=== PATIENT | female | born 1975 | race Caucasian/White ===

== ENCOUNTER → 2017-08-16 | Outpatient (CLI) | payer BC, OTHER ==
--- NOTE | 2017-08-16 15:47 | PCVCIMAG ---
APPROVED REPORT Study performed: 08/16/2017 14:42:18 EXAM: Comprehensive 2D, Doppler, and color-flow Echocardiogram Patient Location: Echo lab Status: routine BSA: 1.87 HR: 64 bpmBP: 120/62 mmHg Rhythm: NSR Other Information Study Quality: Adequate Indications Palpitations PSVT 2D Dimensions LVEF(%): 54.62 (>50%) IVSd: 10.64 (7-11mm) LVDd: 46.93 mm PWd: 10.26 (7-11mm) LVDs: 33.66 (25-40mm) Left Atrium: 39.87 (27-40mm) Aortic Root: 28.30 mm LV Single Plane 4CH: 58.07 % LV Single Plane 2CH: 60.90 %Jiménez's LVEF: 59.49 % Biplane EF: 59.6 % Volumes Left Atrial Volume (Systole) Single Plane 4CH: 46.26 mLSingle Plane 2CH: 55.36 mL LA ESV Index: 29.00 mL/m2 Aortic Valve AoV Peak Chuckie.: 1.43 m/s AO Peak Gr.: 8.24 mmHgLVOT Max P.68 mmHg LVOT Max V: 1.08 m/s Mitral Valve E/A Ratio: 1.5 MV Decel. Time: 228.73 ms MV E Max Chuckie.: 0.77 m/s MV A Chuckie.: 0.51 m/s MV PHT: 66.33 ms IVRT: 103.81 ms Pulmonary Valve PV Peak Chuckie.: 0.86 m/sPV Peak Gr.: 2.96 mmHg Pulmonary Vein P Vein S: 0.47 m/sP Vein A: 0.28 m/s P Vein D: 0.50 m/sP Vein A Dur.: 134.9 msec P Vein S/D Ratio: 0.94 Tricuspid Valve TR Peak Chuckie.: 2.12 m/s TR Peak Gr.: 18.00 mmHg Left Ventricle The left ventricle is normal size. There is normal LV segmental wall motion. There is normal left ventricular wall thickness. Left ventricular systolic function is normal. The left ventricular ejection fraction is within the normal range. LVEF is 55-60%. Grade I - abnormal relaxation pattern. Right Ventricle The right ventricle is normal size. The right ventricular systolic function is normal. Atria The left atrium size is normal. The right atrium size is normal. Aortic Valve The aortic valve is normal in structure. No aortic regurgitation is present. There is no aortic valvular stenosis. Mitral Valve The mitral valve is normal in structure. There is no mitral valve regurgitation noted. No evidence of mitral valve stenosis. Tricuspid Valve The tricuspid valve is normal in structure. Trace tricuspid regurgitation with PAP of 25 mmHg. Pulmonic Valve The pulmonary valve is normal in structure. There is trivial pulmonic valvular regurgitation. Great Vessels The aortic root is normal in size. IVC is normal in size and collapses with >50% inspiration Pericardium There is no pericardial effusion. <Conclusion> The left ventricle is normal size. Left ventricular systolic function is normal. The right ventricle is normal size. The left atrium size is normal. The aortic valve is normal in structure. The mitral valve is normal in structure. Trace tricuspid regurgitation with PAP of 25 mmHg.
== END | disposition home or self-care (01) ==
LOC: PCVCIMAG 14:49
PROVIDERS: ATTEND Internal Medicine Cardiovascular Disease
DX: I47.1 Supraventricular tachycardia (principal); R07.9 Chest pain, unspecified; Z87.891 Personal history of nicotine dependence
CPT/HCPCS: 93005; 93306; G0463